=== PATIENT | male | born 1980 | race African-American/Black ===

== ENCOUNTER 2017-04-04 04:32 | Inpatient (IN) | payer MEDICAID ==
[~2017-04-04] VITALS: Ht 180.3 cm; Wt 70.6 kg
[2017-04-04] MEDS ORDERED: SODIUM CHLORIDE 0.9% 1,000ML IVBOLUS ONE (05:00)
[2017-04-04] MEDS ORDERED: KETOROLAC 30 MG/1 ML IVPush ONE (05:00)
[2017-04-04] MEDS ORDERED: KETOROLAC 30 MG/1 ML ONE (05:00)
[2017-04-04] MEDS ORDERED: ONDANSETRON 2MG/ML, 2ML IVPush ONE (05:00)
[2017-04-04] MEDS ORDERED: SODIUM CHLORIDE FLUSH 10ML SYR IVF ONE (05:00)
[2017-04-04] MEDS ORDERED: ONDANSETRON 2MG/ML, 2ML ONE (05:00)
[2017-04-04 05:59] LABS: BLOOD UREA NITROGEN 6 mg/dL (7-18)
[2017-04-04] MEDS ORDERED: AZITHROMYCIN 500 MG in SODIUM CHLORIDE 0.9% 250 ML IVPB ONE (06:00)
[2017-04-04] MEDS ORDERED: CEFTRIAXONE 1,000 MG in SODIUM CHLORIDE 0.9% 50 ML IVPB ONE (06:00)
[2017-04-04] MEDS ORDERED: CEFTRIAXONE PMX 1GM/50ML 50 ML ONE (06:04)
[2017-04-04 07:44] VITALS: BP 139/94
[2017-04-04] MEDS ORDERED: BISACODYL 10 MG SUPP PR PRN (09:30)
[2017-04-04] MEDS ORDERED: ONDANSETRON 2MG/ML, 2ML IVPush PRN (09:30)
[2017-04-04] MEDS ORDERED: CEFTRIAXONE PMX 1GM/50ML 50 ML IV SCH (09:30)
[2017-04-04] MEDS ORDERED: DOCUSATE 100 MG CAPSULE PO PRN (09:30)
[2017-04-04] MEDS ORDERED: POLYETHYLENE GLYCOL 17 GM PACKET PO PRN (09:30)
[2017-04-04] MEDS ORDERED: AZITHROMYCIN 500 MG in SODIUM CHLORIDE 0.9% 250 ML IV SCH (10:00)
[2017-04-04] MEDS: SODIUM CHLORIDE 0.9% 1,000 ML IV SCH ×2 (10:21→20:19)
[2017-04-04] MEDS: ENOXAPARIN 40 MG/0.4 ML SQ SCH (11:43)
[2017-04-04] MEDS ORDERED: ALBUTEROL/IPRATROPIUM 2.5MG/0.5MG, 3 ML ONE (12:24)
[2017-04-04] MEDS: ALBUTEROL/IPRATROPIUM 2.5MG/0.5MG, 3 ML NPPB SCH ×3 (12:27→19:15)
[2017-04-04] MEDS ORDERED: PNEUMOCOCCAL 23 VACCINE IM-VACC ONE (12:30)
[2017-04-04 14:58] VITALS: BP 150/103
[2017-04-04] MEDS: NICOTINE 14MG/24 HR PATCH.TD24 TD SCH (15:22)
[2017-04-04] MEDS: ACETAMINOPHEN 325 MG TABLET PO PRN ×2 (16:11→20:24)
[2017-04-04] MEDS ORDERED: MAGNESIUM SULFATE PMX 2GM/50ML 50 ML IV ONE (19:30)
[2017-04-04 20:15] VITALS: BP 168/117
[2017-04-04] MEDS: hydrALAzine 20 MG/ML, 1ML IVPush PRN (20:38)
[2017-04-04 21:30] VITALS: BP 151/99
[2017-04-05] MEDS: ACETAMINOPHEN 325 MG TABLET PO PRN ×3 (00:52→18:03)
[2017-04-05 00:55] VITALS: BP 167/105
[2017-04-05] MEDS: hydrALAzine 20 MG/ML, 1ML IVPush PRN ×3 (00:58→13:37)
[2017-04-05 05:15] LABS: ASPARTATE AMINO TRANSFERASE 40 U/L (15-37); BLOOD UREA NITROGEN 5 mg/dL (7-18)
[2017-04-05] MEDS: CEFTRIAXONE PMX 1GM/50ML 50 ML IV SCH (05:34)
[2017-04-05] MEDS: AZITHROMYCIN 500 MG in SODIUM CHLORIDE 0.9% 250 ML IV SCH (06:11)
[2017-04-05] MEDS ORDERED: OMNIPAQUE 350 MG/ML, 100ML BOTTLE ONE (06:29)
[2017-04-05] MEDS: ALBUTEROL/IPRATROPIUM 2.5MG/0.5MG, 3 ML NPPB SCH (07:37)
[2017-04-05] MEDS ORDERED: SODIUM CHLORIDE 0.9% 1,000 ML IV SCH ×2 (08:00→08:05)
[2017-04-05 08:34] VITALS: BP 157/108
[2017-04-05] MEDS: ENOXAPARIN 40 MG/0.4 ML SQ SCH (10:51)
[2017-04-05 12:10] VITALS: BP 153/105
[2017-04-05 13:28] VITALS: BP 162/107
[2017-04-05] MEDS ORDERED: POTASSIUM CHLORIDE 20 MEQ TAB.ER.PRT PO ONE (13:30)
[2017-04-05] MEDS: BENZONATATE 100 MG CAPSULE PO SCH ×2 (15:11→21:48)
[2017-04-05] MEDS: NICOTINE 14MG/24 HR PATCH.TD24 TD SCH (15:11)
[2017-04-05] MEDS: CARVEDILOL 6.25 MG TABLET PO SCH (18:03)
[2017-04-05 18:04] VITALS: BP 169/110
[2017-04-05] MEDS ORDERED: SODIUM CHLORIDE 0.9%, 500ML IVBOLUS ONE (19:00)
[2017-04-05] MEDS ORDERED: ALBUTEROL/IPRATROPIUM 2.5MG/0.5MG, 3 ML ONE (19:36)
[2017-04-05] MEDS: ALBUTEROL/IPRATROPIUM 2.5MG/0.5MG, 3 ML NPPB PRN (19:40)
[2017-04-06] MEDS: ALBUTEROL/IPRATROPIUM 2.5MG/0.5MG, 3 ML NPPB PRN ×3 (03:28→20:40)
[2017-04-06 03:36] VITALS: BP 150/107
[2017-04-06] MEDS: CEFTRIAXONE PMX 1GM/50ML 50 ML IV SCH (05:38)
[2017-04-06] MEDS: CARVEDILOL 6.25 MG TABLET PO SCH ×2 (05:40→20:08)
[2017-04-06] MEDS: AZITHROMYCIN 500 MG in SODIUM CHLORIDE 0.9% 250 ML IV SCH (06:35)
[2017-04-06 07:35] VITALS: BP 138/110
[2017-04-06] MEDS: BENZONATATE 100 MG CAPSULE PO SCH ×3 (09:14→20:08)
[2017-04-06] MEDS: hydrALAzine 20 MG/ML, 1ML IVPush PRN ×2 (09:14→16:04)
[2017-04-06] MEDS ORDERED: POTASSIUM CHLORIDE 20 MEQ TAB.ER.PRT PO ONE (10:00)
[2017-04-06 10:38] VITALS: BP 145/99
[2017-04-06] MEDS ORDERED: MAGNESIUM SULFATE PMX 2GM/50ML 50 ML IV ONE (11:00)
[2017-04-06] MEDS: ACETAMINOPHEN 325 MG TABLET PO PRN (11:48)
[2017-04-06] MEDS: ENOXAPARIN 40 MG/0.4 ML SQ SCH (11:49)
[2017-04-06 12:46] VITALS: BP 147/101
[2017-04-06] MEDS: ASA/APAP/ CAFFEINE TABLET PO PRN ×2 (14:12→20:08)
[2017-04-06] MEDS: NICOTINE 14MG/24 HR PATCH.TD24 TD SCH (15:52)
[2017-04-06 15:58] VITALS: BP 152/104
[2017-04-06 16:39] LABS: BLOOD UREA NITROGEN 3 mg/dL (7-18)
[2017-04-06 19:46] VITALS: BP 139/106
[2017-04-07 02:17] VITALS: BP_SYST 145; BP_SYST 162; BP_DIAS 104
[2017-04-07] MEDS: hydrALAzine 20 MG/ML, 1ML IVPush PRN ×2 (02:28→18:46)
[2017-04-07 04:03] VITALS: BP 144/106
[2017-04-07 05:21] LABS: BLOOD UREA NITROGEN 4 mg/dL (7-18)
[2017-04-07] MEDS: CEFTRIAXONE PMX 1GM/50ML 50 ML IV SCH (05:42)
[2017-04-07 08:04] VITALS: BP 145/98
[2017-04-07] MEDS: BENZONATATE 100 MG CAPSULE PO SCH ×3 (08:06→20:20)
[2017-04-07] MEDS: CARVEDILOL 6.25 MG TABLET PO SCH ×2 (08:06→20:19)
[2017-04-07] MEDS: DOXYCYCLINE 100 MG in DEXTROSE 5% 250 ML IV SCH ×2 (08:07→20:19)
[2017-04-07] MEDS: ENOXAPARIN 40 MG/0.4 ML SQ SCH (12:17)
[2017-04-07 14:23] VITALS: BP 138/94
[2017-04-07] MEDS: NICOTINE 14MG/24 HR PATCH.TD24 TD SCH (16:48)
[2017-04-07] MEDS: FAMOTIDINE 20 MG TABLET PO SCH (18:11)
[2017-04-07] MEDS: CALCIUM CARBONATE 500 MG TAB.CHEW PO PRN (18:11)
[2017-04-07] MEDS: methylPREDNISolone SOD SUCC 40 MG/ML IV SCH (18:11)
[2017-04-07 19:25] VITALS: BP 150/109
[2017-04-07 19:46] LABS: DAU SCREEN DISCLAIMER
[2017-04-07] MEDS: ASA/APAP/ CAFFEINE TABLET PO PRN (20:20)
[2017-04-07] MEDS: ALBUTEROL/IPRATROPIUM 2.5MG/0.5MG, 3 ML NPPB PRN (22:18)
[2017-04-08 00:57] VITALS: BP 149/103
[2017-04-08] MEDS: methylPREDNISolone SOD SUCC 40 MG/ML IV SCH ×3 (01:48→18:36)
[2017-04-08] MEDS: CEFTRIAXONE PMX 1GM/50ML 50 ML IV SCH (05:32)
[2017-04-08] MEDS: CALCIUM CARBONATE 500 MG TAB.CHEW PO PRN ×2 (06:09→23:53)
[2017-04-08 07:42] VITALS: BP 143/108
[2017-04-08] MEDS: FAMOTIDINE 20 MG TABLET PO SCH ×2 (08:50→20:09)
[2017-04-08] MEDS: DOXYCYCLINE 100 MG in DEXTROSE 5% 250 ML IV SCH ×2 (08:50→20:09)
[2017-04-08] MEDS: CARVEDILOL 6.25 MG TABLET PO SCH (08:50)
[2017-04-08] MEDS: BENZONATATE 100 MG CAPSULE PO SCH ×3 (08:52→20:09)
[2017-04-08] MEDS: hydrALAzine 20 MG/ML, 1ML IVPush PRN ×2 (10:27→21:57)
[2017-04-08] MEDS: ALBUTEROL/IPRATROPIUM 2.5MG/0.5MG, 3 ML NPPB PRN (10:30)
[2017-04-08 10:46] LABS: HIV 1&2 ANTIBODY SCREEN Nonreactive (Nonreactive); HIV-1 p24 ANTIGEN Nonreactive (Nonreactive)
[2017-04-08] MEDS: ASA/APAP/ CAFFEINE TABLET PO PRN ×2 (11:07→20:10)
[2017-04-08 11:28] VITALS: BP 149/95
[2017-04-08 13:59] VITALS: BP 141/94
[2017-04-08] MEDS: ENOXAPARIN 40 MG/0.4 ML SQ SCH (15:11)
[2017-04-08] MEDS: NICOTINE 14MG/24 HR PATCH.TD24 TD SCH (15:12)
[2017-04-08] MEDS ORDERED: CARV12.5 PO (16:52)
[2017-04-08] MEDS ORDERED: LISI10TA2 PO (16:54)
[2017-04-08 19:34] VITALS: BP 150/112
[2017-04-08] MEDS: CARVEDILOL 12.5 MG TABLET PO PRN (20:10)
[2017-04-08 21:56] VITALS: BP 150/114
[2017-04-09 01:39] VITALS: BP 127/78
[2017-04-09] MEDS: methylPREDNISolone SOD SUCC 40 MG/ML IV SCH ×2 (02:26→12:23)
[2017-04-09] MEDS: CEFTRIAXONE PMX 1GM/50ML 50 ML IV SCH (06:14)
[2017-04-09 06:41] VITALS: BP 147/97
[2017-04-09] MEDS ORDERED: LISINOPRIL 10 MG TABLET PO SCH (09:00)
[2017-04-09] MEDS: BENZONATATE 100 MG CAPSULE PO SCH (09:16)
[2017-04-09] MEDS: FAMOTIDINE 20 MG TABLET PO SCH (09:17)
[2017-04-09] MEDS: CARVEDILOL 12.5 MG TABLET PO PRN (09:17)
[2017-04-09] MEDS: DOXYCYCLINE 100 MG in DEXTROSE 5% 250 ML IV SCH (09:17)
[2017-04-09] MEDS: ENOXAPARIN 40 MG/0.4 ML SQ SCH (12:23)
[2017-04-09 12:39] VITALS: BP 139/102
[2017-04-09] MEDS: hydrALAzine 20 MG/ML, 1ML IVPush PRN (13:16)
[2017-04-09] MEDS ORDERED: CARV-39 PO (14:29)
[2017-04-09] MEDS ORDERED: LISI10TA2 PO (14:29)
[2017-04-09] MEDS ORDERED: CEFD300C37 PO (16:06)
[2017-04-09] MEDS ORDERED: DOXY100T PO (16:07)
[2017-04-09] MEDS ORDERED: PRED10TA PO (16:09)
[2017-04-09] MEDS ORDERED: CARVEDILOL 12.5 MG TABLET PO SCH (21:00)
== END 2017-04-09 16:22 | disposition home or self-care (01) | DRG 871 ==
LOC: ED 05:24 → EDIP 06:13 → 3NW 07:19 → 4WST 04-05 21:36 → DCLOUNGE 04-09 16:05
PROVIDERS: ADMIT Internal Medicine; ATTEND Internal Medicine
DX: A41.9 Sepsis, unspecified organism (principal); J96.00 Acute respiratory failure, unspecified whether with hypoxia or hypercapnia; J18.1 Lobar pneumonia, unspecified organism; E87.2 Acidosis; I10 Essential (primary) hypertension; J45.909 Unspecified asthma, uncomplicated; Z82.49 Family history of ischemic heart disease and other diseases of the circulatory system; Z87.891 Personal history of nicotine dependence; Z59.0 Homelessness
CPT/HCPCS: 36415; 71010; 71275; 80048; 80053; 80307; 81001; 82040; 82607; 82746; 83605; 83735; 84100; 84145; 84311; 84443; 85025; 85379; 86703; 87040; 87899; 90732; 93005; 94640; 96365; 96368; 96375; J0456; J0696; J1650; J1885; J2405; J7060; J7620; Q9967; G0435; J0360; J2920; J3475; J7030; J7040; J7050

== ENCOUNTER 2017-04-30 12:41 | Emergency (ER) | payer MEDICAID ==
[~2017-04-30] VITALS: Ht 180.3 cm; Wt 70.0 kg
[~2017-04-30 12:41] MED LIST: CARV-39 PO; CARV12.5 PO; CEFD300C37 PO; DOXY100T PO; LISI10TA2 PO; PRED10TA PO
[2017-04-30] MEDS ORDERED: LISINOPRIL 10 MG TABLET PO ONE (13:00)
[2017-04-30] MEDS ORDERED: CARVEDILOL 25 MG TABLET PO STA (13:00)
[2017-04-30 18:11] VITALS: BP 114/75
== END 2017-04-30 18:34 | disposition home or self-care (01) ==
LOC: ED 18:28
DX: F10.120 Alcohol abuse with intoxication, uncomplicated (principal); I10 Essential (primary) hypertension
CPT/HCPCS: 99283

== ENCOUNTER 2017-07-03 06:40 | Inpatient (IN) | payer MEDICAID ==
[~2017-07-03] VITALS: Ht 180.3 cm; Wt 67.0 kg
[2017-07-03] MEDS ORDERED: SODIUM CHLORIDE 0.9% 1,000 ML IV ONE ×2 (06:47→11:00)
[2017-07-03] MEDS ORDERED: SODIUM CHLORIDE 0.9% 1,000ML IVBOLUS ONE ×2 (07:00→11:00)
[2017-07-03] MEDS ORDERED: ONDANSETRON 2MG/ML, 2ML IVPush ONE (07:00)
[2017-07-03] MEDS ORDERED: SODIUM CHLORIDE FLUSH 10ML SYR IVF ONE (07:00)
[2017-07-03] MEDS ORDERED: PLEASE ENTER HEIGHT AND WEIGHT MC SCH (07:00)
[2017-07-03 07:16] LABS: HEMATOCRIT 43.1 % (39.2-51.8); HEMOGLOBIN 14.5 g/dL (13.7-18.0); WHITE BLOOD COUNT 19.2 x10^3/uL (3.4-10)
[2017-07-03] MEDS ORDERED: ACETAMINOPHEN 500 MG TABLET ONE (07:17)
[2017-07-03] MEDS ORDERED: ONDANSETRON 2MG/ML, 2ML ONE (07:17)
[2017-07-03 07:27] LABS: ASPARTATE AMINO TRANSFERASE 264 U/L (15-37); BLOOD UREA NITROGEN 7 mg/dL (7-18)
[2017-07-03] MEDS ORDERED: ACETAMINOPHEN 500 MG TABLET PO ONE (07:30)
[2017-07-03 08:19] LABS: IS PT STATUS REG ER OR PRE ER? YES
[2017-07-03] MEDS ORDERED: PROMETHAZINE 25 MG/ML, 1ML ONE (09:57)
[2017-07-03] MEDS ORDERED: SODIUM CHLORIDE FLUSH 10ML SYR IVF PRN (10:00)
[2017-07-03] MEDS ORDERED: PIPERACILLIN/TAZO/PMX 3.375GM 50 ML ONE (10:02)
[2017-07-03] MEDS: AZITHROMYCIN 500 MG in SODIUM CHLORIDE 0.9% 250 ML IV SCH (11:00)
[2017-07-03] MEDS ORDERED: CEFTAZIDIME 1,000 MG in SODIUM CHLORIDE 0.9% 50 ML IVPB ONE (11:00)
[2017-07-03] MEDS ORDERED: PROMETHAZINE 25 MG/ML, 1ML IM ONE (11:00)
[2017-07-03] MEDS ORDERED: MORPHINE SULFATE 4 MG/ML, 1ML IVPush PRN (11:00)
[2017-07-03] MEDS ORDERED: POLYETHYLENE GLYCOL 17 GM PACKET PO PRN (11:00)
[2017-07-03] MEDS ORDERED: ACETAMINOPHEN 325 MG TABLET PO PRN (11:00)
[2017-07-03] MEDS ORDERED: HYDROcodone/APAP 5/325 TABLET PO PRN (11:00)
[2017-07-03] MEDS ORDERED: BISACODYL 10 MG SUPP PR PRN (11:00)
[2017-07-03] MEDS ORDERED: ONDANSETRON 2MG/ML, 2ML IVPush PRN (11:00)
[2017-07-03] MEDS ORDERED: DOCUSATE 100 MG CAPSULE PO PRN (11:00)
[2017-07-03 11:16] LABS: HEP B SURF. AB < 3.1 mIU/mL (0.0-10.0)
[2017-07-03] MEDS: CEFTRIAXONE PMX 1GM/50ML 50 ML IV SCH (11:24)
[2017-07-03] MEDS ORDERED: ENOXAPARIN 40 MG/0.4 ML ONE (11:28)
[2017-07-03] MEDS: ENOXAPARIN 40 MG/0.4 ML SQ SCH (11:29)
[2017-07-03] MEDS ORDERED: PIPERACILLIN/TAZO/PMX 4.5GM 100 ML IVPB ONE (11:30)
[2017-07-03] MEDS ORDERED: PIPERACILLIN/TAZO/PMX 3.375GM 50 ML IV ONE (11:30)
[2017-07-03] MEDS: NS + 20MEQ KCL 1,000 ML IV SCH (18:30)
[2017-07-03 18:31] VITALS: BP 143/91
[2017-07-03 19:49] VITALS: BP 143/91
[2017-07-03] MEDS: GUAIFENESIN ER 600 MG TABLET PO SCH (20:38)
[2017-07-03] MEDS: CARVEDILOL 25 MG TABLET PO SCH (20:38)
[2017-07-03 21:18] LABS: RAPID INFLUENZA A Negative (Negative); RAPID INFLUENZA B Negative (Negative)
[2017-07-04] MEDS: NS + 20MEQ KCL 1,000 ML IV SCH ×4 (00:47→21:10)
[2017-07-04 00:50] VITALS: BP 139/96
[2017-07-04 04:58] LABS: HEMATOCRIT 38.7 % (39.2-51.8); HEMOGLOBIN 13.2 g/dL (13.7-18.0); WHITE BLOOD COUNT 10.2 x10^3/uL (3.4-10)
[2017-07-04 05:05] LABS: BLOOD UREA NITROGEN 2 mg/dL (7-18)
[2017-07-04 05:08] LABS: ASPARTATE AMINO TRANSFERASE 105 U/L (15-37)
[2017-07-04 06:37] VITALS: BP 142/100
[2017-07-04] MEDS: CARVEDILOL 25 MG TABLET PO SCH ×2 (08:32→21:10)
[2017-07-04] MEDS: LISINOPRIL 10 MG TABLET PO SCH (08:32)
[2017-07-04] MEDS: GUAIFENESIN ER 600 MG TABLET PO SCH ×2 (08:32→21:10)
[2017-07-04] MEDS ORDERED: metroNIDAZOLE 500 MG TABLET PO SCH ×2 (09:00)
[2017-07-04] MEDS: ENOXAPARIN 40 MG/0.4 ML SQ SCH (11:47)
[2017-07-04] MEDS: CEFTRIAXONE PMX 1GM/50ML 50 ML IV SCH (11:47)
[2017-07-04 13:32] VITALS: BP 126/84
[2017-07-04] MEDS: AZITHROMYCIN 500 MG in SODIUM CHLORIDE 0.9% 250 ML IV SCH (13:57)
[2017-07-04 20:21] VITALS: BP 121/78
[2017-07-05] VITALS (8 sets, daily range): BP systolic 148–172; BP diastolic 102–119
[2017-07-05] MEDS: ENALAPRILAT 1.25 MG/ML, 2ML IVPush PRN ×3 (03:13→23:26)
[2017-07-05] MEDS: NS + 20MEQ KCL 1,000 ML IV SCH ×3 (03:52→17:52)
[2017-07-05 06:03] LABS: BLOOD UREA NITROGEN 3 mg/dL (7-18)
[2017-07-05 06:04] LABS: ASPARTATE AMINO TRANSFERASE 62 U/L (15-37)
[2017-07-05 06:32] LABS: HEMOGLOBIN 12.5 g/dL (13.7-18.0); WHITE BLOOD COUNT 7.7 x10^3/uL (3.4-10)
[2017-07-05] MEDS: CARVEDILOL 25 MG TABLET PO SCH ×2 (09:56→22:02)
[2017-07-05] MEDS: LISINOPRIL 10 MG TABLET PO SCH (09:58)
[2017-07-05] MEDS: GUAIFENESIN ER 600 MG TABLET PO SCH ×2 (09:59→22:02)
[2017-07-05] MEDS: CEFTRIAXONE PMX 1GM/50ML 50 ML IV SCH (11:59)
[2017-07-05] MEDS: ENOXAPARIN 40 MG/0.4 ML SQ SCH (12:51)
[2017-07-05] MEDS: AZITHROMYCIN 500 MG in SODIUM CHLORIDE 0.9% 250 ML IV SCH (12:51)
[2017-07-06 00:30] VITALS: BP_SYST 160; BP_SYST 165; BP_DIAS 103; BP_DIAS 109
[2017-07-06] MEDS: NS + 20MEQ KCL 1,000 ML IV SCH (00:32)
[2017-07-06] MEDS ORDERED: hydrALAzine 20 MG/ML, 1ML IV ONE (01:00)
[2017-07-06 02:18] VITALS: BP 156/111
[2017-07-06 05:56] LABS: BLOOD UREA NITROGEN 8 mg/dL (7-18)
[2017-07-06 06:27] LABS: HEMATOCRIT 41.5 % (39.2-51.8); HEMOGLOBIN 13.9 g/dL (13.7-18.0); WHITE BLOOD COUNT 8.4 x10^3/uL (3.4-10)
[2017-07-06 06:49] VITALS: BP 155/103
[2017-07-06] MEDS: CARVEDILOL 25 MG TABLET PO SCH (10:02)
[2017-07-06] MEDS: GUAIFENESIN ER 600 MG TABLET PO SCH (10:02)
[2017-07-06] MEDS: LISINOPRIL 10 MG TABLET PO SCH (10:02)
[2017-07-06] MEDS: ENOXAPARIN 40 MG/0.4 ML SQ SCH (11:01)
[2017-07-06] MEDS: CEFTRIAXONE PMX 1GM/50ML 50 ML IV SCH (11:06)
[2017-07-06] MEDS: AZITHROMYCIN 500 MG in SODIUM CHLORIDE 0.9% 250 ML IV SCH (11:43)
[2017-07-06 12:26] VITALS: BP 151/94
[2017-07-06] MEDS ORDERED: AZIT500T5 PO (12:58)
[2017-07-06] MEDS ORDERED: CEFD300C37 PO (12:58)
[2017-07-06] MEDS ORDERED: NS + 20MEQ KCL 1,000 ML IV SCH (18:00)
== END 2017-07-06 16:26 | disposition home or self-care (01) | DRG 871 ==
LOC: ED 09:09 → EDIP 09:57 → 4EST 17:33
PROVIDERS: ADMIT Internal Medicine; ATTEND Family Medicine
DX: A41.9 Sepsis, unspecified organism (principal); J15.9 Unspecified bacterial pneumonia; J96.00 Acute respiratory failure, unspecified whether with hypoxia or hypercapnia; D69.6 Thrombocytopenia, unspecified; I11.9 Hypertensive heart disease without heart failure; J44.0 Chronic obstructive pulmonary disease with (acute) lower respiratory infection; E86.0 Dehydration; D75.89 Other specified diseases of blood and blood-forming organs; F17.210 Nicotine dependence, cigarettes, uncomplicated; R65.20 Severe sepsis without septic shock; Z59.0 Homelessness; Z82.49 Family history of ischemic heart disease and other diseases of the circulatory system; Z91.14 Patient's other noncompliance with medication regimen; Z90.49 Acquired absence of other specified parts of digestive tract
CPT/HCPCS: 36415; 71010; 71275; 74177; 80048; 80053; 81001; 82607; 83605; 83690; 84145; 84484; 85025; 85379; 86705; 86706; 86709; 86803; 87040; 87070; 87205; 87324; 87340; 87400; 87493; 96361; 96365; 96367; 96368; 96372; 96375; J0456; J0696; J0713; J1650; J2405; J2543; J2550; J3480; J0360; J7030; J7050

== ENCOUNTER 2017-07-17 14:32 | Inpatient (IN) | payer MEDICAID ==
[~2017-07-17] VITALS: Ht 180.3 cm; Wt 67.1 kg
[~2017-07-17 14:32] MED LIST changes: +AZIT500T5 PO
[2017-07-17] MEDS ORDERED: SODIUM CHLORIDE 0.9% 1,000 ML IV ONE (15:11)
[2017-07-17] MEDS ORDERED: ONDANSETRON 2MG/ML, 2ML ONE ×2 (15:28→18:36)
[2017-07-17] MEDS ORDERED: FAMOTIDINE 20 MG/2 ML IVP ONE (15:30)
[2017-07-17] MEDS ORDERED: SODIUM CHLORIDE FLUSH 10ML SYR IVF ONE (15:30)
[2017-07-17] MEDS ORDERED: ONDANSETRON 2MG/ML, 2ML IVPush ONE ×2 (15:30→18:30)
[2017-07-17] MEDS ORDERED: SODIUM CHLORIDE 0.9% 1,000ML IVBOLUS ONE ×2 (15:30→16:30)
[2017-07-17 15:47] LABS: HEMATOCRIT 42.8 % (39.2-51.8); HEMOGLOBIN 14.7 g/dL (13.7-18.0); WHITE BLOOD COUNT 8.1 x10^3/uL (3.4-10)
[2017-07-17 15:54] LABS: ASPARTATE AMINO TRANSFERASE 446 U/L (15-37); BLOOD UREA NITROGEN 4 mg/dL (7-18)
[2017-07-17 16:48] LABS: DAU SCREEN DISCLAIMER
[2017-07-17] MEDS ORDERED: ONDANSETRON 2MG/ML, 2ML IVPush PRN (21:00)
[2017-07-17] MEDS ORDERED: BISACODYL 10 MG SUPP PR PRN (21:00)
[2017-07-17] MEDS ORDERED: OXYcodone IR 5MG TABLET PO PRN (21:00)
[2017-07-17] MEDS ORDERED: ENALAPRILAT 1.25 MG/ML, 2ML IVPush PRN (21:00)
[2017-07-17] MEDS ORDERED: DOCUSATE 100 MG CAPSULE PO PRN (21:00)
[2017-07-17] MEDS ORDERED: THIAMINE 100MG TABLET PO ONE (21:00)
[2017-07-17] MEDS ORDERED: POLYETHYLENE GLYCOL 17 GM PACKET PO PRN (21:00)
[2017-07-17] MEDS ORDERED: LABETALOL 5MG/ML, 20ML IVPush PRN (21:00)
[2017-07-17] MEDS ORDERED: morphine SULFATE 10 MG/ML, 1ML IVPush PRN (21:00)
[2017-07-17] MEDS ORDERED: LORazepam 2 MG/ML, 1ML IV PRN ×5 (21:30)
[2017-07-17] MEDS ORDERED: POTASSIUM CHLORIDE 40 MEQ in SODIUM CHLORIDE 0.9% 500 ML IV ONE (21:30)
[2017-07-17] MEDS ORDERED: LORazepam 1MG TABLET PO PRN ×4 (21:30)
[2017-07-17] MEDS: SODIUM CHLORIDE 0.9% 1,000 ML IV SCH (22:35)
[2017-07-17] MEDS: PANTOPRAZOLE 40 MG IV IVPush SCH (23:26)
[2017-07-17] MEDS: LISINOPRIL 10 MG TABLET PO SCH (23:26)
[2017-07-17] MEDS: NICOTINE 14MG/24 HR PATCH.TD24 TD SCH (23:26)
[2017-07-18 00:59] VITALS: BP 141/103
[2017-07-18 01:50] VITALS: BP 142/84
[2017-07-18] MEDS: SODIUM CHLORIDE 0.9% 1,000 ML IV SCH ×2 (03:38→08:45)
[2017-07-18] MEDS: CARVEDILOL 6.25 MG TABLET PO SCH ×2 (06:37→17:56)
[2017-07-18 06:48] LABS: ASPARTATE AMINO TRANSFERASE 293 U/L (15-37); BLOOD UREA NITROGEN 3 mg/dL (7-18)
[2017-07-18 07:02] LABS: HEMATOCRIT 34.7 % (39.2-51.8); HEMOGLOBIN 11.6 g/dL (13.7-18.0); WHITE BLOOD COUNT 6.4 x10^3/uL (3.4-10)
[2017-07-18 07:40] VITALS: BP 148/90
[2017-07-18] MEDS: MULTIVITAMIN 1 TABLET PO SCH (08:45)
[2017-07-18] MEDS: LORazepam 0.5MG TABLET PO PRN ×3 (08:45→20:50)
[2017-07-18] MEDS: PANTOPRAZOLE 40 MG IV IVPush SCH (08:45)
[2017-07-18] MEDS: LISINOPRIL 10 MG TABLET PO SCH (08:46)
[2017-07-18] MEDS: FOLIC ACID 1 MG TABLET PO SCH (08:46)
[2017-07-18 13:31] VITALS: BP 158/96
[2017-07-18] MEDS: PANTOPROZOLE 40MG TABLET PO SCH (17:56)
[2017-07-18 18:31] VITALS: BP 145/93
[2017-07-18] MEDS: NICOTINE 14MG/24 HR PATCH.TD24 TD SCH (20:50)
[2017-07-19 02:35] VITALS: BP 147/96
[2017-07-19] MEDS: CARVEDILOL 6.25 MG TABLET PO SCH ×2 (05:18→17:02)
[2017-07-19 06:29] LABS: ASPARTATE AMINO TRANSFERASE 140 U/L (15-37); BLOOD UREA NITROGEN 8 mg/dL (7-18)
[2017-07-19 06:47] VITALS: BP 147/95
[2017-07-19] MEDS: LISINOPRIL 10 MG TABLET PO SCH (08:16)
[2017-07-19] MEDS: PANTOPROZOLE 40MG TABLET PO SCH ×2 (08:16→17:02)
[2017-07-19] MEDS: MULTIVITAMIN 1 TABLET PO SCH (08:17)
[2017-07-19] MEDS: FOLIC ACID 1 MG TABLET PO SCH (08:17)
[2017-07-19 12:05] VITALS: BP 136/104
[2017-07-19] MEDS: MAGNESIUM OXIDE 400 MG TABLET PO SCH ×2 (15:57→20:40)
[2017-07-19 20:00] VITALS: BP 150/95
[2017-07-19] MEDS: LORazepam 0.5MG TABLET PO PRN (20:40)
[2017-07-19] MEDS: NICOTINE 14MG/24 HR PATCH.TD24 TD SCH (20:40)
[2017-07-20 03:23] VITALS: BP 132/96
[2017-07-20 05:55] LABS: HEMATOCRIT 36.9 % (39.2-51.8); HEMOGLOBIN 12.4 g/dL (13.7-18.0)
[2017-07-20 06:05] LABS: ASPARTATE AMINO TRANSFERASE 89 U/L (15-37); BLOOD UREA NITROGEN 7 mg/dL (7-18)
[2017-07-20] MEDS: CARVEDILOL 6.25 MG TABLET PO SCH (06:08)
[2017-07-20] MEDS: LISINOPRIL 10 MG TABLET PO SCH (08:16)
[2017-07-20] MEDS: FOLIC ACID 1 MG TABLET PO SCH (08:16)
[2017-07-20] MEDS: MULTIVITAMIN 1 TABLET PO SCH (08:16)
[2017-07-20] MEDS: PANTOPROZOLE 40MG TABLET PO SCH (08:16)
[2017-07-20 08:20] VITALS: BP 160/114
[2017-07-20] MEDS ORDERED: MAGNESIUM OXIDE 400 MG TABLET PO SCH (09:00)
[2017-07-20 09:04] VITALS: BP 148/102
[2017-07-20] MEDS ORDERED: NICO-485 TD (11:24)
[2017-07-20] MEDS ORDERED: NICO-486 TD (11:24)
[2017-07-20] MEDS ORDERED: LISI-167 PO (11:24)
[2017-07-20] MEDS ORDERED: PANT40TA5 PO (11:24)
[2017-07-20] MEDS ORDERED: CARV6.2512 PO (11:24)
[2017-07-20] MEDS ORDERED: NICO-487 TD (11:24)
[2017-07-20] MEDS ORDERED: FLU VACC QS2017-18 (36MOS+) UP/PF 0.5 ML IM-VACC ONE (12:30)
== END 2017-07-20 15:10 | disposition home or self-care (01) | DRG 895 ==
LOC: ED 15:30 → EDIP 19:41 → 4WST 21:47
PROVIDERS: ADMIT Internal Medicine; ATTEND Internal Medicine
PROC: HZ34ZZZ Individual Counseling for Substance Abuse Treatment, Interpersonal (ICD-10-PCS; principal; 2017-07-17)
PROC: HZ2ZZZZ Detoxification Services for Substance Abuse Treatment (ICD-10-PCS; 2017-07-17)
DX: F10.239 Alcohol dependence with withdrawal, unspecified (principal); I95.9 Hypotension, unspecified; E87.2 Acidosis; I42.6 Alcoholic cardiomyopathy; I11.9 Hypertensive heart disease without heart failure; E83.42 Hypomagnesemia; K70.10 Alcoholic hepatitis without ascites; F10.288 Alcohol dependence with other alcohol-induced disorder; E86.0 Dehydration; F10.229 Alcohol dependence with intoxication, unspecified; D53.9 Nutritional anemia, unspecified; D75.89 Other specified diseases of blood and blood-forming organs; E87.6 Hypokalemia; F17.200 Nicotine dependence, unspecified, uncomplicated; K76.0 Fatty (change of) liver, not elsewhere classified; G40.909 Epilepsy, unspecified, not intractable, without status epilepticus; I77.810 Thoracic aortic ectasia; R74.0 Nonspecific elevation of levels of transaminase and lactic acid dehydrogenase [LDH]; Y90.8 Blood alcohol level of 240 mg/100 ml or more; Z81.3 Family history of other psychoactive substance abuse and dependence; Z82.49 Family history of ischemic heart disease and other diseases of the circulatory system; Z83.3 Family history of diabetes mellitus; Z90.49 Acquired absence of other specified parts of digestive tract; Z91.14 Patient's other noncompliance with medication regimen; Z87.01 Personal history of pneumonia (recurrent); K29.20 Alcoholic gastritis without bleeding
CPT/HCPCS: 36415; 74022; 76700; 80053; 80061; 80307; 81003; 82010; 83036; 83605; 83690; 83735; 84439; 84443; 84484; 85025; 87324; 90686; 93005; 93306; 96361; 96374; 96375; 96376; J2405; J3480; C9113; G0479; J2060; J7030; J7040; S0028

== ENCOUNTER 2017-07-27 15:04 | Inpatient (IN) | payer MEDICAID ==
[~2017-07-27] VITALS: Ht 180.3 cm; Wt 64.1 kg
[~2017-07-27 15:04] MED LIST changes: +CARV6.2512 PO; +LISI-167 PO; +NICO-485 TD; +NICO-486 TD; +NICO-487 TD; +PANT40TA5 PO
[2017-07-27 15:28] LABS: HEMATOCRIT 41.3 % (39.2-51.8)
[2017-07-27 15:40] LABS: ASPARTATE AMINO TRANSFERASE 395 U/L (15-37); BLOOD UREA NITROGEN 13 mg/dL (7-18)
[2017-07-27] MEDS: NS + 20MEQ KCL 1,000 ML IV SCH (16:00)
[2017-07-27] MEDS ORDERED: OMNIPAQUE 350 MG/ML, 100ML BOTTLE ONE (16:24)
[2017-07-27] MEDS ORDERED: DOCUSATE 100 MG CAPSULE PO PRN (16:30)
[2017-07-27] MEDS ORDERED: SODIUM CHLORIDE FLUSH 10ML SYR IVF ONE (16:30)
[2017-07-27] MEDS ORDERED: ACETAMINOPHEN 325 MG TABLET PO PRN (16:30)
[2017-07-27] MEDS ORDERED: SODIUM CHLORIDE 0.9% 1,000ML IVBOLUS ONE (16:30)
[2017-07-27] MEDS ORDERED: POLYETHYLENE GLYCOL 17 GM PACKET PO PRN (16:30)
[2017-07-27] MEDS ORDERED: OXYcodone IR 5MG TABLET PO PRN (16:30)
[2017-07-27] MEDS ORDERED: ENOXAPARIN 40 MG/0.4 ML ONE (16:42)
[2017-07-27] MEDS: ENOXAPARIN 40 MG/0.4 ML SQ SCH (16:45)
[2017-07-27] MEDS ORDERED: MORPHINE SULFATE 4 MG/ML, 1ML ONE (17:04)
[2017-07-27] MEDS ORDERED: ONDANSETRON 2MG/ML, 2ML ONE (17:04)
[2017-07-27] MEDS: morphine SULFATE 10 MG/ML, 1ML IVPush PRN ×3 (17:06→23:52)
[2017-07-27] MEDS: ONDANSETRON 2MG/ML, 2ML IVPush PRN ×2 (17:06→23:52)
[2017-07-27 19:47] VITALS: BP 122/83
[2017-07-27] MEDS: NICOTINE 7 MG/24 HR PATCH.TD24 TD SCH (20:31)
[2017-07-27] MEDS: CARVEDILOL 6.25 MG TABLET PO SCH (20:31)
[2017-07-27] MEDS: PANTOPROZOLE 40MG TABLET PO SCH (20:31)
[2017-07-28 01:35] VITALS: BP 134/87
[2017-07-28] MEDS: NS + 20MEQ KCL 1,000 ML IV SCH ×2 (01:39→18:17)
[2017-07-28 01:49] VITALS: BP 134/87
[2017-07-28] MEDS: morphine SULFATE 10 MG/ML, 1ML IVPush PRN ×3 (04:31→18:48)
[2017-07-28] MEDS: CARVEDILOL 6.25 MG TABLET PO SCH ×2 (06:13→18:18)
[2017-07-28 06:29] LABS: ASPARTATE AMINO TRANSFERASE 255 U/L (15-37); BLOOD UREA NITROGEN 10 mg/dL (7-18)
[2017-07-28 08:04] VITALS: BP 154/100
[2017-07-28] MEDS ORDERED: MAGNESIUM SULFATE PMX 2GM/50ML 50 ML IV ONE (08:30)
[2017-07-28] MEDS: LISINOPRIL 10 MG TABLET PO SCH (09:55)
[2017-07-28] MEDS: PANTOPROZOLE 40MG TABLET PO SCH ×2 (09:55→20:51)
[2017-07-28 14:23] VITALS: BP 169/111
[2017-07-28] MEDS: ENOXAPARIN 40 MG/0.4 ML SQ SCH (16:30)
[2017-07-28 20:00] VITALS: BP 168/103
[2017-07-28] MEDS: NICOTINE 7 MG/24 HR PATCH.TD24 TD SCH (20:51)
[2017-07-28] MEDS: LORazepam 1MG TABLET PO PRN (20:51)
[2017-07-29] MEDS: NS + 20MEQ KCL 1,000 ML IV SCH (01:55)
[2017-07-29 02:00] VITALS: BP 151/90
[2017-07-29 05:40] LABS: ASPARTATE AMINO TRANSFERASE 154 U/L (15-37); BLOOD UREA NITROGEN 4 mg/dL (7-18)
[2017-07-29] MEDS: CARVEDILOL 6.25 MG TABLET PO SCH ×2 (05:52→17:31)
[2017-07-29] MEDS: PANTOPROZOLE 40MG TABLET PO SCH ×2 (08:32→20:34)
[2017-07-29] MEDS: LISINOPRIL 10 MG TABLET PO SCH ×2 (08:32→20:38)
[2017-07-29] MEDS ORDERED: MORPHINE SULFATE 4 MG/ML, 1ML ONE (08:38)
[2017-07-29] MEDS: morphine SULFATE 10 MG/ML, 1ML IVPush PRN ×2 (08:40→23:15)
[2017-07-29 08:43] VITALS: BP 193/110
[2017-07-29 10:53] VITALS: BP 136/90
[2017-07-29] MEDS: FENOFIBRATE 145 MG TABLET PO SCH (10:54)
[2017-07-29 13:31] VITALS: BP 125/85
[2017-07-29] MEDS: ENOXAPARIN 40 MG/0.4 ML SQ SCH (15:37)
[2017-07-29 20:00] VITALS: BP 132/94
[2017-07-29] MEDS: LORazepam 1MG TABLET PO PRN (20:34)
[2017-07-29] MEDS: NICOTINE 7 MG/24 HR PATCH.TD24 TD SCH (20:34)
[2017-07-30 02:00] VITALS: BP 142/90
[2017-07-30] MEDS: CARVEDILOL 6.25 MG TABLET PO SCH (05:51)
[2017-07-30 06:04] LABS: BLOOD UREA NITROGEN 2 mg/dL (7-18)
[2017-07-30 06:08] LABS: ASPARTATE AMINO TRANSFERASE 95 U/L (15-37)
[2017-07-30 08:00] VITALS: BP 128/97
[2017-07-30] MEDS: PANTOPROZOLE 40MG TABLET PO SCH (09:00)
[2017-07-30] MEDS: LISINOPRIL 10 MG TABLET PO SCH (09:03)
[2017-07-30] MEDS: FENOFIBRATE 145 MG TABLET PO SCH (09:04)
[2017-07-30] MEDS ORDERED: FENO145T13 PO (10:16)
[2017-07-30] MEDS ORDERED: HYDR-3341 PO (10:16)
== END 2017-07-30 11:48 | disposition home or self-care (01) | DRG 432 ==
LOC: ED 15:41 → SUATTDRO 16:19 → EDIP 17:05 → 4EST 17:57 → DCLOUNGE 07-30 11:39
PROVIDERS: ADMIT Family Medicine; ATTEND Family Medicine
DX: K70.10 Alcoholic hepatitis without ascites (principal); K85.20 Alcohol induced acute pancreatitis without necrosis or infection; K85.80 Other acute pancreatitis without necrosis or infection; F10.188 Alcohol abuse with other alcohol-induced disorder; K86.1 Other chronic pancreatitis; E78.1 Pure hyperglyceridemia; F17.210 Nicotine dependence, cigarettes, uncomplicated; G40.909 Epilepsy, unspecified, not intractable, without status epilepticus; I10 Essential (primary) hypertension; K29.20 Alcoholic gastritis without bleeding; Z82.49 Family history of ischemic heart disease and other diseases of the circulatory system; Z83.3 Family history of diabetes mellitus; Z91.19 Patient's noncompliance with other medical treatment and regimen; T46.4X5A Adverse effect of angiotensin-converting-enzyme inhibitors, initial encounter
CPT/HCPCS: 36415; 74177; 80053; 80061; 83690; 83735; 85025; 96372; J1650; J2405; J3480; Q9967; J2270; J3475; J7030

== ENCOUNTER 2017-09-17 04:59 | Emergency (ER) | payer MEDICAID ==
[~2017-09-17] VITALS: Ht 180.3 cm; Wt 70.6 kg
[~2017-09-17 04:59] MED LIST changes: +FENO145T13 PO; +HYDR-3341 PO
[2017-09-17] MEDS ORDERED: ONDANSETRON 2MG/ML, 2ML ONE (05:24)
[2017-09-17] MEDS ORDERED: SODIUM CHLORIDE 0.9% 1,000ML IVBOLUS ONE (05:30)
[2017-09-17] MEDS ORDERED: SODIUM CHLORIDE FLUSH 10ML SYR IVF ONE (05:30)
[2017-09-17] MEDS ORDERED: ONDANSETRON 2MG/ML, 2ML IVPush ONE (05:30)
[2017-09-17 05:45] LABS: HEMATOCRIT 38.7 % (39.2-51.8); WHITE BLOOD COUNT 5.2 x10^3/uL (3.4-10)
[2017-09-17 05:56] LABS: ASPARTATE AMINO TRANSFERASE 70 U/L (15-37); BLOOD UREA NITROGEN 6 mg/dL (7-18)
[2017-09-17] MEDS ORDERED: ACETAMINOPHEN 325 MG TABLET PO ONE (07:00)
[2017-09-17] MEDS ORDERED: PROMETHAZINE 25 MG/ML, 1ML IM ONE (07:00)
[2017-09-17 07:08] VITALS: BP 141/89
[2017-09-17] MEDS ORDERED: PROMETHAZINE 25 MG/ML, 1ML ONE (07:08)
[2017-09-17] MEDS ORDERED: ACETAMINOPHEN 325 MG TABLET ONE (07:09)
== END 2017-09-17 07:46 | disposition home or self-care (01) ==
LOC: ED 05:56
DX: R10.32 Left lower quadrant pain (principal); R19.7 Diarrhea, unspecified; R11.2 Nausea with vomiting, unspecified; G40.909 Epilepsy, unspecified, not intractable, without status epilepticus; I10 Essential (primary) hypertension; Z90.49 Acquired absence of other specified parts of digestive tract
CPT/HCPCS: 36415; 80053; 81001; 83690; 85025; 96361; 96372; 96374; 99284; J2405; J2550; J7030

== ENCOUNTER 2017-09-27 20:20 | Inpatient (IN) | payer MEDICAID ==
[~2017-09-27] VITALS: Ht 180.3 cm; Wt 66.0 kg
[2017-09-27] MEDS ORDERED: ONDANSETRON 2MG/ML, 2ML ONE (20:41)
[2017-09-27 20:53] LABS: HEMOGLOBIN 14.4 g/dL (13.7-18.0); WHITE BLOOD COUNT 7.9 x10^3/uL (3.4-10)
[2017-09-27] MEDS ORDERED: SODIUM CHLORIDE 0.9% 1,000ML IVBOLUS ONE ×2 (21:00→22:00)
[2017-09-27] MEDS ORDERED: SODIUM CHLORIDE FLUSH 10ML SYR IVF ONE (21:00)
[2017-09-27] MEDS ORDERED: ONDANSETRON 2MG/ML, 2ML IVPush ONE (21:00)
[2017-09-27 21:01] LABS: RAPID INFLUENZA A Negative (Negative); RAPID INFLUENZA B Negative (Negative)
[2017-09-27 21:04] LABS: ASPARTATE AMINO TRANSFERASE 118 U/L (15-37); BLOOD UREA NITROGEN 7 mg/dL (7-18)
[2017-09-27] MEDS ORDERED: KETOROLAC 30 MG/1 ML IVPush ONE (21:30)
[2017-09-27] MEDS ORDERED: KETOROLAC 30 MG/1 ML ONE (21:36)
[2017-09-27] MEDS ORDERED: PROMETHAZINE 25 MG/ML, 1ML ONE (21:36)
[2017-09-27] MEDS ORDERED: PROMETHAZINE 25 MG/ML, 1ML IM ONE (22:00)
[2017-09-28] MEDS ORDERED: SODIUM CHLORIDE 0.9% 1,000 ML IV SCH ×2 (00:11→09:30)
[2017-09-28] MEDS ORDERED: BISACODYL 10 MG SUPP PR PRN (00:30)
[2017-09-28] MEDS ORDERED: PROMETHAZINE 25 MG/ML, 1ML IM PRN (00:30)
[2017-09-28] MEDS ORDERED: D5%-0.45% NACL 1,000 ML IV SCH (00:53)
[2017-09-28 01:03] VITALS: BP 121/84
[2017-09-28] MEDS: KETOROLAC 30 MG/1 ML IVPush SCH ×4 (06:30→20:10)
[2017-09-28] MEDS: CARVEDILOL 6.25 MG TABLET PO SCH ×2 (06:52→17:12)
[2017-09-28] MEDS: ENOXAPARIN 40 MG/0.4 ML SQ SCH (06:55)
[2017-09-28] MEDS: FENOFIBRATE 145 MG TABLET PO SCH (07:03)
[2017-09-28 07:41] VITALS: BP 132/93
[2017-09-28] MEDS: SODIUM CHLORIDE 0.9% 1,000 ML IV SCH ×3 (09:47→20:10)
[2017-09-28 11:51] LABS: HEMATOCRIT 34.6 % (39.2-51.8); HEMOGLOBIN 11.8 g/dL (13.7-18.0); WHITE BLOOD COUNT 6.3 x10^3/uL (3.4-10)
[2017-09-28 12:01] LABS: BLOOD UREA NITROGEN 10 mg/dL (7-18)
[2017-09-28 13:28] VITALS: BP 146/94
[2017-09-28] MEDS ORDERED: MAGNESIUM SULFATE PMX 2GM/50ML 50 ML IV ONE (13:30)
[2017-09-28 17:11] VITALS: BP 159/113
[2017-09-28 18:44] VITALS: BP 145/106
[2017-09-29 01:56] VITALS: BP 157/110
[2017-09-29] MEDS: KETOROLAC 30 MG/1 ML IVPush SCH ×4 (02:42→20:55)
[2017-09-29] MEDS: hydrALAzine 20 MG/ML, 1ML IVPush PRN (02:43)
[2017-09-29] MEDS: SODIUM CHLORIDE 0.9% 1,000 ML IV SCH ×4 (02:43→20:54)
[2017-09-29 05:37] LABS: HEMATOCRIT 40.6 % (39.2-51.8); HEMOGLOBIN 13.4 g/dL (13.7-18.0); WHITE BLOOD COUNT 8.2 x10^3/uL (3.4-10)
[2017-09-29 05:45] LABS: BLOOD UREA NITROGEN 5 mg/dL (7-18)
[2017-09-29] MEDS: CARVEDILOL 6.25 MG TABLET PO SCH ×2 (05:47→18:33)
[2017-09-29 07:35] VITALS: BP 149/96
[2017-09-29] MEDS: ENOXAPARIN 40 MG/0.4 ML SQ SCH (09:55)
[2017-09-29] MEDS ORDERED: POTASSIUM CHLORIDE 20 MEQ TAB.ER.PRT PO ONE (10:00)
[2017-09-29] MEDS: FENOFIBRATE 145 MG TABLET PO SCH (10:01)
[2017-09-29 14:04] VITALS: BP 162/95
[2017-09-29 19:28] VITALS: BP 164/115
[2017-09-30 01:54] VITALS: BP 156/114
[2017-09-30] MEDS: SODIUM CHLORIDE 0.9% 1,000 ML IV SCH ×4 (02:00→21:10)
[2017-09-30] MEDS: hydrALAzine 20 MG/ML, 1ML IVPush PRN (03:05)
[2017-09-30] MEDS: KETOROLAC 30 MG/1 ML IVPush SCH ×4 (03:05→21:10)
[2017-09-30] MEDS: CARVEDILOL 6.25 MG TABLET PO SCH ×2 (03:05→18:26)
[2017-09-30 05:38] LABS: BLOOD UREA NITROGEN 5 mg/dL (7-18)
[2017-09-30 06:19] LABS: HEMATOCRIT 34.3 % (39.2-51.8); HEMOGLOBIN 11.4 g/dL (13.7-18.0); WHITE BLOOD COUNT 7.2 x10^3/uL (3.4-10)
[2017-09-30 07:00] VITALS: BP 150/98
[2017-09-30] MEDS: FENOFIBRATE 145 MG TABLET PO SCH (09:54)
[2017-09-30] MEDS: ENOXAPARIN 40 MG/0.4 ML SQ SCH (09:54)
[2017-09-30 12:34] VITALS: BP 143/99
[2017-09-30 18:47] VITALS: BP 140/101
[2017-10-01] MEDS: SODIUM CHLORIDE 0.9% 1,000 ML IV SCH ×4 (02:14→16:19)
[2017-10-01 02:35] VITALS: BP 146/96
[2017-10-01] MEDS: KETOROLAC 30 MG/1 ML IVPush SCH ×3 (03:35→15:00)
[2017-10-01] MEDS: CARVEDILOL 6.25 MG TABLET PO SCH ×2 (03:35→16:18)
[2017-10-01 07:33] VITALS: BP 132/93
[2017-10-01] MEDS: ENOXAPARIN 40 MG/0.4 ML SQ SCH (09:27)
[2017-10-01] MEDS: FENOFIBRATE 145 MG TABLET PO SCH (09:32)
[2017-10-01 13:05] VITALS: BP 147/99
[2017-10-01 16:15] VITALS: BP 158/98
== END 2017-10-01 16:50 | disposition home or self-care (01) | DRG 432 ==
LOC: ED 23:29 → EDIP 23:30 → ED 23:51 → 4NOR 09-28 00:30 → DCLOUNGE 10-01 16:30
PROVIDERS: ADMIT Surgery; ATTEND Hospitalist
DX: K70.10 Alcoholic hepatitis without ascites (principal); K85.20 Alcohol induced acute pancreatitis without necrosis or infection; K86.0 Alcohol-induced chronic pancreatitis; D53.9 Nutritional anemia, unspecified; E78.5 Hyperlipidemia, unspecified; E86.9 Volume depletion, unspecified; I10 Essential (primary) hypertension; F12.90 Cannabis use, unspecified, uncomplicated; R00.0 Tachycardia, unspecified; Z82.49 Family history of ischemic heart disease and other diseases of the circulatory system; Z83.3 Family history of diabetes mellitus; Z87.891 Personal history of nicotine dependence; Z90.49 Acquired absence of other specified parts of digestive tract; Z72.89 Other problems related to lifestyle; Z71.41 Alcohol abuse counseling and surveillance of alcoholic
CPT/HCPCS: 36415; 71010; 80048; 80053; 81001; 82607; 82746; 83690; 83735; 84100; 85025; 87324; 87400; 89055; J1650; J1885; J2405; J2550; J0360; J3475; J7030

== ENCOUNTER 2017-10-18 12:12 | Emergency (ER) | payer MEDICAID ==
[~2017-10-18] VITALS: Ht 180.3 cm; Wt 85.0 kg
[2017-10-18 13:45] LABS: BASOPHILS # (AUTO) 0.07 x10^3/uL (0-0.1); BASOPHILS % (AUTO) 1 % (0-1); EOSINOPHILS % (AUTO) 2 % (1-7); LYMPHOCYTES # (AUTO) 2.76 x10^3/uL (1-3.4); LYMPHOCYTES % (AUTO) 25 % (22-44); MD NO; MEAN CORPUSCULAR HEMOGLOBIN 34.3 pg (27.5-34.5); MEAN CORPUSCULAR HGB CONC 32.7 g/dL (33.2-36.2); MEAN PLATELET VOLUME 7.4 fL (7.4-10.4); MONOCYTES # (AUTO) 0.53 x10^3/uL (0.2-0.8); MONOCYTES % (AUTO) 5 % (2-9); NEUTROPHILS # (AUTO) 7.38 x10^3/uL (1.8-6.8); NEUTROPHILS % (AUTO) 68 % (42-75); PLATELET COUNT 549 x10^3/uL (130-400); RED BLOOD COUNT 3.76 x10^6/uL (4.38-5.82); RED CELL DISTRIBUTION WIDTH 14.8 % (9.4-14.8)
[2017-10-18 13:58] LABS: ALBUMIN 3.4 g/dL (3.4-5.0); ANION GAP 8 mmol/L (5-15); CALCIUM 8.4 mg/dL (8.5-10.1); CHLORIDE 109 mmol/L (98-107); CREATININE 0.87 mg/dL (0.7-1.3)
[2017-10-18 14:14] LABS: ACETAMINOPHEN < 2 mcg/mL (10-30)
[2017-10-18 18:24] VITALS: BP 119/78
== END 2017-10-18 18:28 ==
LOC: ED 12:34
DX: F10.220 Alcohol dependence with intoxication, uncomplicated (principal); I10 Essential (primary) hypertension; F17.200 Nicotine dependence, unspecified, uncomplicated; R73.09 Other abnormal glucose
CPT/HCPCS: 36415; 80048; 80307; 80329; 82040; 82962; 85025; 99284; G0479; G0480

== ENCOUNTER 2017-10-19 15:02 | Emergency (ER) | payer MEDICAID ==
[~2017-10-19] VITALS: Ht 180.3 cm; Wt 74.0 kg
[2017-10-19] MEDS ORDERED: SODIUM CHLORIDE 0.9% 1,000ML IVBOLUS ONE (16:00)
[2017-10-19] MEDS ORDERED: FAMOTIDINE 20 MG/2 ML IVP ONE (16:00)
[2017-10-19] MEDS ORDERED: ONDANSETRON 2MG/ML, 2ML IVPush ONE (16:00)
[2017-10-19] MEDS ORDERED: SODIUM CHLORIDE FLUSH 10ML SYR IVF ONE (16:00)
[2017-10-19] MEDS ORDERED: ONDANSETRON 2MG/ML, 2ML ONE (16:01)
[2017-10-19] MEDS ORDERED: FAMOTIDINE 20 MG/2 ML ONE (16:01)
[2017-10-19 16:05] LABS: MEAN CORPUSCULAR HEMOGLOBIN 34.5 pg (27.5-34.5); MEAN CORPUSCULAR HGB CONC 33.3 g/dL (33.2-36.2); MEAN CORPUSCULAR VOLUME 103.4 fL (81-97); MEAN PLATELET VOLUME 7.4 fL (7.4-10.4); PLATELET COUNT 550 x10^3/uL (130-400); RED BLOOD COUNT 4.31 x10^6/uL (4.38-5.82)
[2017-10-19 16:15] LABS: ALANINE AMINOTRANSFERASE 40 U/L (12-78); ALBUMIN 3.4 g/dL (3.4-5.0); ANION GAP 12 mmol/L (5-15); CALCIUM 8.6 mg/dL (8.5-10.1); CHLORIDE 108 mmol/L (98-107); CREATININE 0.91 mg/dL (0.7-1.3)
[2017-10-19 16:17] LABS: ALKALINE PHOSPHATASE 78 U/L (45-117); BILIRUBIN,TOTAL 0.1 mg/dL (0.2-1.0)
[2017-10-19 16:23] LABS: BASOPHILS # (AUTO) 0.02 x10^3/uL (0-0.1); BASOPHILS % (AUTO) 0 % (0-1); EOSINOPHILS # (AUTO) 0.07 x10^3/uL (0-0.4); EOSINOPHILS % (AUTO) 0 % (1-7); LYMPHOCYTES # (AUTO) 1.44 x10^3/uL (1-3.4); LYMPHOCYTES % (AUTO) 8 % (22-44); MD SCAN; MONOCYTES # (AUTO) 0.57 x10^3/uL (0.2-0.8); MONOCYTES % (AUTO) 3 % (2-9); NEUTROPHILS # (AUTO) 16.06 x10^3/uL (1.8-6.8); NEUTROPHILS % (AUTO) 88 % (42-75)
[2017-10-19] MEDS ORDERED: OMNIPAQUE 350 MG/ML, 100ML BOTTLE ONE (17:14)
[2017-10-19 18:05] VITALS: BP 137/93
== END 2017-10-19 18:07 | disposition home or self-care (01) ==
LOC: ED 18:05
DX: B34.9 Viral infection, unspecified (principal); F10.120 Alcohol abuse with intoxication, uncomplicated; G40.909 Epilepsy, unspecified, not intractable, without status epilepticus; I10 Essential (primary) hypertension; Y90.8 Blood alcohol level of 240 mg/100 ml or more; Z90.49 Acquired absence of other specified parts of digestive tract; Z87.19 Personal history of other diseases of the digestive system
CPT/HCPCS: 36415; 71045; 74177; 80053; 80307; 83690; 85025; 96361; 96374; 96375; 99285; J2405; J7030; Q9967; G0479; S0028

== ENCOUNTER 2017-11-08 15:09 | Emergency (ER) | payer MEDICAID ==
[~2017-11-08] VITALS: Ht 180.3 cm; Wt 76.2 kg
[2017-11-08 15:11] VITALS: BP 126/80
[2017-11-08] MEDS ORDERED: SULFAMETH./TRIMETHOPRIM DS 800MG/160MG TABLET PO ONE (15:30)
[2017-11-08] MEDS ORDERED: LIDOCAINE 1%-EPI 1:100K, 20ML SQ ONE (15:30)
[2017-11-08] MEDS ORDERED: HYDROcodone/APAP 5/325 TABLET PO ONE (15:30)
[2017-11-08] MEDS ORDERED: HYDROcodone/APAP 5/325 TABLET ONE (15:43)
[2017-11-08] MEDS ORDERED: LIDOCAINE 1%, 20ML ONE (15:43)
[2017-11-08] MEDS ORDERED: SULFAMETH./TRIMETHOPRIM DS 800MG/160MG TABLET ONE (15:43)
== END 2017-11-08 17:09 | disposition home or self-care (01) ==
LOC: ED 15:52
DX: L02.01 Cutaneous abscess of face (principal); I10 Essential (primary) hypertension; Z90.49 Acquired absence of other specified parts of digestive tract
CPT/HCPCS: 10060; 99283; J3490

== ENCOUNTER 2017-11-11 15:14 | Emergency (ER) | payer MEDICAID ==
[~2017-11-11] VITALS: Ht 180.3 cm; Wt 65.0 kg
[2017-11-11 15:26] VITALS: BP 159/98
== END 2017-11-11 15:54 | disposition home or self-care (01) ==
LOC: ED 15:48
DX: L02.01 Cutaneous abscess of face (principal); Z90.49 Acquired absence of other specified parts of digestive tract
CPT/HCPCS: 99281

== ENCOUNTER 2017-11-18 11:46 | Emergency (ER) | payer MEDICAID ==
[~2017-11-18] VITALS: Ht 180.3 cm; Wt 67.0 kg
[2017-11-18] MEDS ORDERED: SULF1TAB24 PO (11:59)
[2017-11-18] MEDS ORDERED: PANT40TA5 PO (11:59)
[2017-11-18] MEDS ORDERED: FAMOTIDINE 20 MG/2 ML ONE (12:16)
[2017-11-18] MEDS ORDERED: ONDANSETRON 2MG/ML, 2ML ONE (12:16)
[2017-11-18 12:18] LABS: BASOPHILS # (AUTO) 0.03 x10^3/uL (0-0.1); BASOPHILS % (AUTO) 0 % (0-1); EOSINOPHILS # (AUTO) 0.03 x10^3/uL (0-0.4); EOSINOPHILS % (AUTO) 0 % (1-7); LYMPHOCYTES # (AUTO) 2.14 x10^3/uL (1-3.4); LYMPHOCYTES % (AUTO) 31 % (22-44); MD NO; MEAN CORPUSCULAR HEMOGLOBIN 32.7 pg (27.5-34.5); MEAN CORPUSCULAR HGB CONC 32.3 g/dL (33.2-36.2); MEAN CORPUSCULAR VOLUME 101.2 fL (81-97); MEAN PLATELET VOLUME 6.9 fL (7.4-10.4); MONOCYTES # (AUTO) 0.29 x10^3/uL (0.2-0.8); MONOCYTES % (AUTO) 4 % (2-9); NEUTROPHILS # (AUTO) 4.37 x10^3/uL (1.8-6.8); NEUTROPHILS % (AUTO) 64 % (42-75); PLATELET COUNT 408 x10^3/uL (130-400); RED BLOOD COUNT 4.13 x10^6/uL (4.38-5.82); RED CELL DISTRIBUTION WIDTH 15.2 % (9.4-14.8)
[2017-11-18] MEDS ORDERED: FAMOTIDINE 20 MG/2 ML IVPush ONE (12:30)
[2017-11-18] MEDS ORDERED: ONDANSETRON 2MG/ML, 2ML IVPush ONE (12:30)
[2017-11-18] MEDS ORDERED: SODIUM CHLORIDE 0.9% 1,000ML IVBOLUS ONE (12:30)
[2017-11-18 12:31] LABS: ALANINE AMINOTRANSFERASE 39 U/L (12-78); ALBUMIN 3.4 g/dL (3.4-5.0); ANION GAP 12 mmol/L (5-15); CALCIUM 8.4 mg/dL (8.5-10.1); CHLORIDE 102 mmol/L (98-107)
[2017-11-18 12:33] LABS: ALKALINE PHOSPHATASE 80 U/L (45-117); BILIRUBIN,TOTAL 0.3 mg/dL (0.2-1.0); TOTAL PROTEIN 7.8 g/dL (6.4-8.2)
[2017-11-18 13:30] LABS: MICROSCOPIC NOT IND
[2017-11-18 13:39] LABS: CULTURE INDICATED? NO
[2017-11-18 14:17] VITALS: BP 123/83
== END 2017-11-18 14:19 | disposition home or self-care (01) ==
LOC: ED 12:34
DX: K29.20 Alcoholic gastritis without bleeding (principal); F17.210 Nicotine dependence, cigarettes, uncomplicated
CPT/HCPCS: 36415; 80053; 81003; 83690; 85025; 96361; 96374; 96375; 99285; J2405; J7030; S0028

== ENCOUNTER 2017-12-30 14:41 | Emergency (ER) | payer MEDICAID ==
[~2017-12-30] VITALS: Ht 180.3 cm; Wt 67.0 kg
[~2017-12-30 14:41] MED LIST changes: +FOLI-17 PO; +KETO10TA PO; +MAGN400T26 PO; +SULF1TAB24 PO; +THIA100T10 PO
[2017-12-30] MEDS ORDERED: THIAMINE 100MG TABLET PO ONE (15:30)
[2017-12-30 16:06] LABS: MICROSCOPIC NOT IND
[2017-12-30] MEDS ORDERED: THIAMINE 100MG TABLET ONE (16:07)
[2017-12-30 16:09] LABS: CULTURE INDICATED? NO
[2017-12-30 17:09] VITALS: BP 135/91
== END 2017-12-30 17:48 | disposition home or self-care (01) ==
LOC: ED 17:46
DX: F10.220 Alcohol dependence with intoxication, uncomplicated (principal); F17.200 Nicotine dependence, unspecified, uncomplicated; I10 Essential (primary) hypertension
CPT/HCPCS: 81003; 99283

== ENCOUNTER 2018-01-10 08:15 | Emergency (ER) | payer MEDICAID ==
[~2018-01-10] VITALS: Ht 177.8 cm; Wt 74.3 kg
[2018-01-10] MEDS ORDERED: SODIUM CHLORIDE FLUSH 10ML SYR IVF ONE (08:30)
[2018-01-10 08:41] LABS: BASOPHILS # (AUTO) 0.08 x10^3/uL (0-0.1); BASOPHILS % (AUTO) 1 % (0-1); EOSINOPHILS # (AUTO) 0.12 x10^3/uL (0-0.4); EOSINOPHILS % (AUTO) 2 % (1-7); LYMPHOCYTES # (AUTO) 2.55 x10^3/uL (1-3.4); LYMPHOCYTES % (AUTO) 33 % (22-44); MD NO; MEAN CORPUSCULAR HEMOGLOBIN 32.3 pg (27.5-34.5); MEAN CORPUSCULAR HGB CONC 32.5 g/dL (33.2-36.2); MEAN CORPUSCULAR VOLUME 99.3 fL (81-97); MEAN PLATELET VOLUME 7.8 fL (7.4-10.4); MONOCYTES # (AUTO) 0.67 x10^3/uL (0.2-0.8); MONOCYTES % (AUTO) 9 % (2-9); NEUTROPHILS # (AUTO) 4.32 x10^3/uL (1.8-6.8); NEUTROPHILS % (AUTO) 56 % (42-75); PLATELET COUNT 369 x10^3/uL (130-400); RED BLOOD COUNT 3.85 x10^6/uL (4.38-5.82); RED CELL DISTRIBUTION WIDTH 17.9 % (9.4-14.8)
[2018-01-10 08:50] LABS: INTERNATIONAL NORMALIZED RATIO 1.09 (0.93-1.1); PROTHROMBIN TIME 11.3 Seconds (9.6-11.5)
[2018-01-10 08:54] LABS: ALANINE AMINOTRANSFERASE 141 U/L (12-78); ALBUMIN 3.3 g/dL (3.4-5.0); ANION GAP 10 mmol/L (5-15); CALCIUM 7.9 mg/dL (8.5-10.1); CHLORIDE 111 mmol/L (98-107); CREATININE 0.95 mg/dL (0.7-1.3)
[2018-01-10] MEDS ORDERED: PLEASE ENTER HEIGHT AND WEIGHT MC SCH (09:00)
[2018-01-10 09:02] LABS: ALKALINE PHOSPHATASE 71 U/L (45-117); BILIRUBIN,TOTAL 0.5 mg/dL (0.2-1.0); TOTAL PROTEIN 7.1 g/dL (6.4-8.2); TROPONIN I < 0.015 ng/mL (0.000-0.045)
[2018-01-10 17:50] VITALS: BP 97/50
== END 2018-01-10 18:00 | disposition home or self-care (01) ==
LOC: ED 12:29
DX: F10.120 Alcohol abuse with intoxication, uncomplicated (principal); R74.0 Nonspecific elevation of levels of transaminase and lactic acid dehydrogenase [LDH]; I10 Essential (primary) hypertension; G40.909 Epilepsy, unspecified, not intractable, without status epilepticus; Z79.899 Other long term (current) drug therapy
CPT/HCPCS: 36415; 71045; 80053; 80307; 82962; 83880; 84484; 85025; 85610; 93005; 99285

== ENCOUNTER 2018-07-28 13:44 | Emergency (ER) | payer MEDICAID ==
[~2018-07-28] VITALS: Ht 180.3 cm; Wt 68.7 kg
[~2018-07-28 13:44] MED LIST changes: -FENO145T13 PO; +FENO145T30 PO; +HYDRALAZINE PO
[2018-07-28] MEDS ORDERED: ONDANSETRON ODT 4 MG PO ONE (14:30)
[2018-07-28] MEDS ORDERED: ACETAMINOPHEN 325 MG TABLET PO ONE (15:00)
[2018-07-28 17:23] VITALS: BP 128/94
== END 2018-07-28 18:19 | disposition home or self-care (01) ==
LOC: ED 15:30
DX: S09.90XA Unspecified injury of head, initial encounter (principal); F10.20 Alcohol dependence, uncomplicated; Z72.9 Problem related to lifestyle, unspecified; I10 Essential (primary) hypertension; G40.909 Epilepsy, unspecified, not intractable, without status epilepticus; Z90.49 Acquired absence of other specified parts of digestive tract; W01.0XXA Fall on same level from slipping, tripping and stumbling without subsequent striking against object, initial encounter; Y93.89 Activity, other specified; Y92.410 Unspecified street and highway as the place of occurrence of the external cause; Y99.8 Other external cause status
CPT/HCPCS: 70450; 70486; 93005; 99284

== ENCOUNTER 2018-12-17 10:19 | Emergency (ER) | payer MEDICAID ==
[~2018-12-17] VITALS: Ht 180.3 cm; Wt 95.0 kg
[2018-12-17 10:34] VITALS: BP 108/79
--- NOTE | 2018-12-17 12:42 | NUR ---
PT CONTINUES TO SLEEP. CHEST RISE AND FALL OBSERVED. PT REMAINS ON CONTINUOUS SPO2 MONITOR.
== END 2018-12-17 13:33 | disposition home or self-care (01) ==
LOC: ED 13:21
DX: F10.221 Alcohol dependence with intoxication delirium (principal); I10 Essential (primary) hypertension; Z71.9 Counseling, unspecified
CPT/HCPCS: 99283

== ENCOUNTER 2019-03-04 15:15 | Emergency (ER) | payer MEDICAID ==
[~2019-03-04] VITALS: Ht 177.8 cm; Wt 79.5 kg
[2019-03-04] MEDS ORDERED: LORazepam 2 MG/ML, 1ML ONE (15:18)
--- NOTE | 2019-03-04 15:21 | NUR ---
BIB [facility] AFTER PT WAS FOUND AT [facility]. PT WAS FULL ASSIST TO [facility]. PT HAD UNKNOWN AMOUNT OF ETOH ABUSE. ETOH ODOR. HX WITHDRAWAL SZ. PT SLEEPING ON GURNEY. NADN. MONITORS APPLIED SECONDARY TO HX.
--- NOTE | 2019-03-04 15:55 | NUR ---
PT SLEEPING ON ROMEO. NADN. MORALES.
[2019-03-04 16:00] LABS: BASOPHILS # (AUTO) 0.05 x10^3/uL (0-0.1); BASOPHILS % (AUTO) 1 % (0-1); EOSINOPHILS # (AUTO) 0.05 x10^3/uL (0-0.4); EOSINOPHILS % (AUTO) 1 % (1-7); LYMPHOCYTES # (AUTO) 3.44 x10^3/uL (1-3.4); LYMPHOCYTES % (AUTO) 53 % (22-44); MD NO; MEAN CORPUSCULAR HEMOGLOBIN 35.2 pg (27.5-34.5); MEAN CORPUSCULAR HGB CONC 32.4 g/dL (33.2-36.2); MEAN CORPUSCULAR VOLUME 108.6 fL (81-97); MONOCYTES # (AUTO) 0.51 x10^3/uL (0.2-0.8); MONOCYTES % (AUTO) 8 % (2-9); NEUTROPHILS % (AUTO) 38 % (42-75); PLATELET COUNT 354 x10^3/uL (130-400); RED BLOOD COUNT 3.85 x10^6/uL (4.38-5.82); RED CELL DISTRIBUTION WIDTH 14.8 % (9.4-14.8)
[2019-03-04 16:07] LABS: ALBUMIN 3.1 g/dL (3.4-5.0); ANION GAP 9 mmol/L (5-15); CALCIUM 7.6 mg/dL (8.5-10.1); CHLORIDE 112 mmol/L (98-107)
[2019-03-04 16:18] LABS: ALANINE AMINOTRANSFERASE 58 U/L (12-78); ALKALINE PHOSPHATASE 69 U/L (45-117); BILIRUBIN,TOTAL 0.2 mg/dL (0.2-1.0); CREATININE 0.82 mg/dL (0.7-1.3); TOTAL PROTEIN 6.6 g/dL (6.4-8.2)
--- NOTE | 2019-03-04 16:46 | NUR ---
PT SLEEPING ON ROMEO. NADN. MORALES.
--- NOTE | 2019-03-04 17:33 | NUR ---
PT SLEEPING ON ROMEO. NADN. MORALES.
--- NOTE | 2019-03-04 18:03 | NUR ---
PER ERP DR. ELENA NO NEED FOR UDS AT THIS TIME IF PT CANNOT PROVIDE SAMPLE.
--- NOTE | 2019-03-04 18:30 | NUR ---
PT SLEEPING ON ROMEO. NADN. MORALES.
--- NOTE | 2019-03-04 18:50 | NUR ---
Report rec, pt sleeping quietly, await sobriety for safe discharge. Pt opens eyes to loud verbal, is non verbal at this time, SpO2 100% 2l nc.
--- NOTE | 2019-03-04 18:57 | NUR ---
REPORT GIVEN TO SOTO ALMAZAN RN.
--- NOTE | 2019-03-04 19:20 | NUR ---
No changes at htis time, await sobriety for safe discharge.
--- NOTE | 2019-03-04 20:19 | NUR ---
AWAKEN VERBAL, INCOMPREHENSIBLE SOUNDS, DOES MAKE EYE CONTACT. AWAIT SOBRIETY FOR SAFE DISCHARGE
--- NOTE | 2019-03-04 21:02 | NUR ---
PT UP AMBUALTING IN HALLWAY, STEADY GAIT, AA AND O TIMES 4, STATES THAT HE WANTS TO LEAVE, BACK TO ROOM, AWARE NEED TO REMOVE IV, WILL SEND PT IN [facility] FOR SAFE DISCHARGE.
[2019-03-04 21:12] VITALS: BP 126/82
== END 2019-03-04 21:15 | disposition home or self-care (01) ==
LOC: ED 18:35
DX: F10.220 Alcohol dependence with intoxication, uncomplicated (principal); I10 Essential (primary) hypertension; G40.909 Epilepsy, unspecified, not intractable, without status epilepticus; Z90.89 Acquired absence of other organs
CPT/HCPCS: 36415; 70450; 80053; 80307; 85025; 99284

== ENCOUNTER 2021-05-31 04:42 | Emergency (ER) | payer MEDICAID ==
[~2021-05-31] VITALS: Ht 177.8 cm; Wt 81.2 kg
[~2021-05-31 04:42] MED LIST changes: +AZIT500T10 PO; -AZIT500T5 PO; +FENO145T19 PO; -FENO145T30 PO; -FOLI-17 PO; +FOLI1TAB32 PO; +LEVE500T8 PO; +LISI10TA19 PO; -LISI10TA2 PO; -NICO-487 TD; +NICO-587 TD; -PANT40TA5 PO; +PANT40TA6 PO; +SULF-23 PO; -SULF1TAB24 PO
[2021-05-31] MEDS ORDERED: ACETAMINOPHEN 500 MG TABLET PO ONE (05:30)
[2021-05-31] MEDS ORDERED: ALBUTEROL/IPRATROPIUM 2.5MG/0.5MG, 3 ML NEB ONE (05:30)
[2021-05-31] MEDS ORDERED: ACETAMINOPHEN 500 MG TABLET ONE (05:42)
[2021-05-31] MEDS ORDERED: ALBUTEROL/IPRATROPIUM 2.5MG/0.5MG, 3 ML ONE (05:43)
[2021-05-31 06:08] LABS: BASOPHILS % (AUTO) 0 % (0-1); EOSINOPHILS % (AUTO) 0 % (1-7); LYMPHOCYTES % (AUTO) 19 % (22-44); MEAN CORPUSCULAR HEMOGLOBIN 34.2 pg (27.5-34.5); MEAN CORPUSCULAR HGB CONC 33.5 g/dL (33.2-36.2); MEAN PLATELET VOLUME 8.1 fL (7.4-10.4); MONOCYTES % (AUTO) 8 % (2-9); NEUTROPHILS % (AUTO) 73 % (42-75); PLATELET COUNT 263 x10^3/uL (130-400); RED BLOOD COUNT 2.53 x10^6/uL (4.38-5.82); RED CELL DISTRIBUTION WIDTH 19.2 % (9.4-14.8)
[2021-05-31 06:20] LABS: ALBUMIN 1.2 g/dL (3.4-5.0); ANION GAP 7 mmol/L (5-15); CALCIUM 8.1 mg/dL (8.5-10.1); CHLORIDE 103 mmol/L (98-107); CREATININE 0.49 mg/dL (0.7-1.3)
--- NOTE | 2021-05-31 07:05 | NUR ---
RECEIVED REPORT FROM TINO DURAND. PT SLEEPING CALMLY ON GURNEY, NAD/VSS, NO NEEDS AT THIS TIME, CALL LIGHT WITHIN REACH.
--- NOTE | 2021-05-31 08:01 | NUR ---
PT MOSTLY SLEEPING BUT AWAKENS & RESPONDS APPROP TO STAFF, NAD, BREAKFAST TRAY GIVEN WITH OTHER COMFORT MEASURES PROVIDED, CALL LIGHT WITHIN REACH.
[2021-05-31 08:48] VITALS: BP 126/84
--- NOTE | 2021-05-31 09:12 | NUR ---
Patient given discharge instructions and Rx, they have confirmed that they understand the instructions. Patient ambulatory with steady gait. NAD, all questions answered appropriately, denies additional needs at this time. No personal belongings left in room after discharge.
== END 2021-05-31 09:43 | disposition home or self-care (01) ==
LOC: ED 05:42
DX: U07.1 COVID-19 (principal); J12.82 Pneumonia due to coronavirus disease 2019; Z59.0 Homelessness; F17.200 Nicotine dependence, unspecified, uncomplicated; R00.0 Tachycardia, unspecified; G40.909 Epilepsy, unspecified, not intractable, without status epilepticus; Z90.49 Acquired absence of other specified parts of digestive tract; I10 Essential (primary) hypertension
CPT/HCPCS: 36415; 71045; 80048; 82040; 85025; 94640; 99284; 99285

== ENCOUNTER 2021-06-07 22:46 | Observation (INO) | payer MEDICAID ==
[~2021-06-07] VITALS: Ht 177.8 cm; Wt 52.9 kg
[2021-06-07] MEDS ORDERED: SODIUM CHLORIDE 0.9% 1,000ML IVBOLUS ONE (23:30)
[2021-06-07] MEDS ORDERED: ONDANSETRON 2MG/ML, 2ML IVPush ONE (23:30)
[2021-06-07] MEDS ORDERED: FAMOTIDINE 20 MG/2 ML IVPush ONE (23:30)
[2021-06-07] MEDS ORDERED: MAALOX/HYOSCYAMINE/LIDOCAINE 45 ML BTL PO ONE (23:30)
[2021-06-07] MEDS ORDERED: SODIUM CHLORIDE FLUSH 10ML SYR IVF ONE (23:30)
[2021-06-07 23:59] LABS: BASOPHILS % (AUTO) 1 % (0-1); EOSINOPHILS % (AUTO) 0 % (1-7); LYMPHOCYTES % (AUTO) 11 % (22-44); MEAN CORPUSCULAR HEMOGLOBIN 33.8 pg (27.5-34.5); MEAN CORPUSCULAR HGB CONC 33.7 g/dL (33.2-36.2); MONOCYTES % (AUTO) 3 % (2-9); NEUTROPHILS % (AUTO) 85 % (42-75); PLATELET COUNT 444 x10^3/uL (130-400); RED BLOOD COUNT 2.82 x10^6/uL (4.38-5.82); RED CELL DISTRIBUTION WIDTH 19.6 % (9.4-14.8)
[2021-06-08 00:09] LABS: CALCIUM 8.8 mg/dL (8.5-10.1); CHLORIDE 108 mmol/L (98-107)
[2021-06-08 00:17] LABS: ANISOCYTOSIS 1+
[2021-06-08 00:19] LABS: <PLATELET ESTIMATE> INCREASED; ALANINE AMINOTRANSFERASE 663 U/L (12-78); ALBUMIN 1.8 g/dL (3.4-5.0); ALKALINE PHOSPHATASE 272 U/L (45-117); ANION GAP 13 mmol/L (5-15); CREATININE 0.79 mg/dL (0.7-1.3); SMALL PLATELETS 1+; TOTAL PROTEIN 7.1 g/dL (6.4-8.2); TROPONIN I < 0.015 ng/mL (0.000-0.045)
[2021-06-08] MEDS ORDERED: ONDANSETRON 2MG/ML, 2ML ONE (01:25)
[2021-06-08] MEDS ORDERED: MAALOX/HYOSCYAMINE/LIDOCAINE 45 ML BTL ONE (01:25)
[2021-06-08] MEDS ORDERED: FAMOTIDINE 20 MG/2 ML ONE (01:25)
[2021-06-08] MEDS ORDERED: POTASSIUM CHLORIDE 20 MEQ TAB.ER.PRT PO ONE (01:30)
[2021-06-08] MEDS ORDERED: POTASSIUM CHLORIDE 20 MEQ TAB.ER.PRT ONE (01:36)
[2021-06-08] MEDS ORDERED: MORPHINE SULFATE 4 MG/ML, 1ML ONE (01:37)
[2021-06-08] MEDS ORDERED: MORPHINE SULFATE 4 MG/ML, 1ML IVPush PRN ×2 (02:00→03:30)
[2021-06-08] MEDS ORDERED: OMNIPAQUE 350 MG/ML, 100ML BOTTLE ONE (02:41)
[2021-06-08] MEDS ORDERED: ONDANSETRON 2MG/ML, 2ML IVPush PRN ×2 (03:30→04:30)
[2021-06-08] MEDS ORDERED: POTASSIUM CHLORIDE 20 MEQ in SODIUM CHLORIDE 0.9% 1,000 ML IV ONE (03:30)
[2021-06-08] MEDS ORDERED: SODIUM CHLORIDE 0.9% 1,000ML IVBOLUS ONE (03:30)
[2021-06-08] MEDS ORDERED: NS + 20MEQ KCL 1,000 ML IV ONE (04:23)
[2021-06-08] MEDS ORDERED: morphine SULFATE 10 MG/ML, 1ML IVPush PRN (04:30)
[2021-06-08] MEDS ORDERED: DEXTROSE 4 GM TAB.CHEW PO PRN (04:30)
[2021-06-08] MEDS ORDERED: MELATONIN 5 MG TABLET PO PRN (04:30)
[2021-06-08] MEDS ORDERED: LACTATED RINGERS 1,000 ML IV SCH (04:30)
[2021-06-08] MEDS ORDERED: LABETALOL 5MG/ML, 20ML IVPush PRN (04:30)
[2021-06-08] MEDS ORDERED: DEXTROSE 50%, 50ML SYRINGE IVPush PRN (04:30)
[2021-06-08] MEDS ORDERED: OXYcodone IR 5MG TABLET PO PRN (04:30)
[2021-06-08] MEDS ORDERED: GLUCAGON 1 MG IM PRN (04:30)
[2021-06-08] MEDS ORDERED: KETOROLAC 30 MG/1 ML IM PRN (04:30)
[2021-06-08] MEDS ORDERED: POLYETHYLENE GLYCOL 17 GM PACKET PO PRN (04:30)
[2021-06-08 05:14] VITALS: BP 136/93
[2021-06-08] MEDS: HEPARIN 5,000 UNITS/ML, 1ML SQ SCH ×2 (05:46→12:30)
[2021-06-08] MEDS ORDERED: LORazepam 0.5MG TABLET PO PRN (06:00)
[2021-06-08] MEDS ORDERED: LORazepam 1MG TABLET PO PRN (06:00)
[2021-06-08] MEDS ORDERED: LORazepam 2 MG/ML, 1ML IV PRN ×2 (06:00)
[2021-06-08 06:34] LABS: BASOPHILS % (AUTO) 1 % (0-1); EOSINOPHILS % (AUTO) 0 % (1-7); LYMPHOCYTES % (AUTO) 14 % (22-44); MEAN CORPUSCULAR HEMOGLOBIN 33.7 pg (27.5-34.5); MEAN CORPUSCULAR HGB CONC 33.2 g/dL (33.2-36.2); MEAN PLATELET VOLUME 7.2 fL (7.4-10.4); MONOCYTES % (AUTO) 4 % (2-9); NEUTROPHILS % (AUTO) 81 % (42-75); PLATELET COUNT 315 x10^3/uL (130-400); RED BLOOD COUNT 2.76 x10^6/uL (4.38-5.82); RED CELL DISTRIBUTION WIDTH 19.2 % (9.4-14.8)
[2021-06-08 06:39] LABS: ALANINE AMINOTRANSFERASE 570 U/L (12-78); ALBUMIN 1.6 g/dL (3.4-5.0); ANION GAP 6 mmol/L (5-15); CHLORIDE 111 mmol/L (98-107); CREATININE 0.66 mg/dL (0.7-1.3)
[2021-06-08 06:44] LABS: ABSOLUTE RETICS # 0.03 x10^6/uL (0.5-1.5); RED BLOOD COUNT 2.7 x10^6/uL (4.38-5.82); RETICULOCYTE COUNT % 1.11 % (0.5-1.5)
[2021-06-08 06:46] LABS: ALKALINE PHOSPHATASE 244 U/L (45-117); BILIRUBIN,TOTAL 0.8 mg/dL (0.2-1.0); TOTAL PROTEIN 6.5 g/dL (6.4-8.2)
[2021-06-08] MEDS: INSULIN LISPRO 100 UNITS/ML, PEN SQ-INSULIN SCH ×3 (07:00→16:00)
[2021-06-08 07:54] VITALS: BP 120/84
[2021-06-08] MEDS ORDERED: SODIUM CHLORIDE FLUSH 10ML SYR IVF SCH (09:00)
[2021-06-08] MEDS ORDERED: FAMOTIDINE 20 MG/2 ML IVPush SCH (09:00)
[2021-06-08 14:55] VITALS: BP 118/74
== END 2021-06-08 19:00 | disposition home or self-care (01) ==
LOC: ED 06-08 01:36 → INTOOBSV 06-08 03:53 → EDIP 06-08 03:53 → 3N 06-08 05:07
PROVIDERS: ADMIT Internal Medicine; ATTEND Hospitalist
DX: R10.9 Unspecified abdominal pain (principal); R11.2 Nausea with vomiting, unspecified; E87.6 Hypokalemia; R74.01 Elevation of levels of liver transaminase levels; K70.10 Alcoholic hepatitis without ascites; D53.9 Nutritional anemia, unspecified; J18.9 Pneumonia, unspecified organism; K29.20 Alcoholic gastritis without bleeding; K52.9 Noninfective gastroenteritis and colitis, unspecified; K72.90 Hepatic failure, unspecified without coma; K83.8 Other specified diseases of biliary tract; K85.20 Alcohol induced acute pancreatitis without necrosis or infection; K86.1 Other chronic pancreatitis; L29.9 Pruritus, unspecified; K21.9 Gastro-esophageal reflux disease without esophagitis; G40.909 Epilepsy, unspecified, not intractable, without status epilepticus; I10 Essential (primary) hypertension; F17.210 Nicotine dependence, cigarettes, uncomplicated; F10.239 Alcohol dependence with withdrawal, unspecified; Z91.14 Patient's other noncompliance with medication regimen; Z63.8 Other specified problems related to primary support group; Z79.899 Other long term (current) drug therapy
CPT/HCPCS: 36415; 74177; 74181; 80053; 82607; 82728; 82962; 83036; 83540; 83550; 83690; 83735; 84484; 85025; 85045; 93005; 96365; 96366; 96375; 96376; 99291; G0378; J2270; J2405; J3480; J7030; Q0177; Q9967